=== PATIENT | female | born 1965 | race African-American/Black ===

== ENCOUNTER 2017-01-31 04:06 | Inpatient (IN) | payer MEDICAID, MEDICARE ==
[~2017-01-31] VITALS: Ht 168.9 cm; Wt 99.8 kg
[2017-01-31] MEDS ORDERED: KETOROLAC 30MG/ML VIAL IM ONE (05:00)
[2017-01-31 05:03] LABS: CLARITY URINE CLEAR (CLEAR); COLOR URINE YELLOW (YELLOW); GLUCOSE URINE NEGATIVE (NEGATIVE); KETONES URINE NEGATIVE (NEGATIVE); LEUKOCYTE ESTERASE URINE NEGATIVE (NEGATIVE); NITRITE URINE NEGATIVE (NEGATIVE); OCCULT BLOOD URINE NEGATIVE (NEGATIVE); PROTEIN URINE NEGATIVE (NEGATIVE); SPECIFIC GRAVITY URINE 1.017 (1.005-1.030)
[2017-01-31 05:18] LABS: BASOPHILS % 2.2 % (0.0-2.0); EOSINOPHILS % 1.9 % (0.0-5.0); HEMATOCRIT. 23.5 % (36.0-48.0); LYMPHOCYTES % 23.2 % (20.0-50.0); MEAN CORPUSCULAR HEMOGLOBIN 18.7 pg (28.0-32.0); MEAN CORPUSCULAR HGB CONC 29.1 g/dL (31.0-37.0); MEAN CORPUSCULAR VOLUME 64.2 fL (81.0-99.0); MEAN PLATELET VOLUME 8.3 fl (7.4-10.4); MONOCYTES % 8.6 % (2.0-8.0); NEUTROPHILS % 64.1 % (40.0-76.0); PLATELET 230 x1000/uL (130-400); RED BLOOD CELL COUNT 3.65 mill/uL (4.2-5.4); RED CELL DISTRIBUTION WIDTH 18.9 % (11.6-14.6); WHITE BLOOD COUNT 6.1 x1000/uL (4.5-11.0)
[2017-01-31 05:20] LABS: ADD RBC MORPHOLOGY YES; DIFFERENTIAL COMMENT 1; HEMOGLOBIN. 6.8 g/dL (12.0-16.0)
[2017-01-31 05:39] LABS: CHLORIDE 106 mEq/L (98-107); INDEX HEMOLYSI 1 (1-3); INDEX ICTERIC 1 (1-4); INDEX LIPEMIC 1 (1-3)
[2017-01-31 05:49] LABS: ANION GAP 11; CALCIUM 8.9 mg/dL (8.5-10.1); CARBON DIOXIDE 27 mEq/L (21-32); UREA NITROGEN BLOOD 15 mg/dL (7-21); eGFR > 60 mL/min (>60)
[2017-01-31 06:16] LABS: PLATELET ESTIMATE NORMAL
[2017-01-31 06:17] LABS: ANISOCYTOSIS 2+; HYPOCHROMASIA 1+
[2017-01-31] MEDS ORDERED: POTASSIUM CHLORIDE 20MEQ TABLET SR PO ONE (06:45)
[2017-01-31] MEDS ORDERED: SODIUM CHLORIDE 0.9% 1,000 ML IV ONE (07:00)
[2017-01-31] MEDS ORDERED: MORPHINE SULFATE 4 MG/ML CPJ (NOT FOR IM USE) IV ONE (07:00)
[2017-01-31] MEDS ORDERED: ONDANSETRON HCL 4MG/2ML VIAL IV ONE (07:00)
[2017-01-31 10:40] VITALS: BP 146/90
[2017-01-31] MEDS ORDERED: MAGNESIUM/ALUMINUM HYDROXIDE/SIMETHICONE 30ML UDC PO PRN (11:30)
[2017-01-31] MEDS ORDERED: LORAZEPAM 2MG/ML CPJ IV PRN (11:30)
[2017-01-31] MEDS ORDERED: NITROGLYCERIN 0.4MG TABLET SL SL PRN (11:30)
[2017-01-31] MEDS ORDERED: ACETAMINOPHEN 325MG TABLET PO PRN (11:30)
[2017-01-31] MEDS ORDERED: GUAIFENESIN 200MG/10ML SUGAR FREE UDC PO PRN (11:30)
[2017-01-31] MEDS ORDERED: IPRATROPIUM/ALBUTEROL 0.5-3(2.5)MG/3ML NEB INH PRN (11:30)
[2017-01-31] MEDS ORDERED: DIPHENHYDRAMINE 50MG/ML VIAL IV PRN (11:30)
[2017-01-31] MEDS ORDERED: NA PHOS,M-B/NA PHOS,DI-BA ENEMA 118ML PR PRN (11:30)
[2017-01-31] MEDS ORDERED: DOCUSATE SODIUM 100MG CAPSULE PO PRN (11:30)
[2017-01-31] MEDS ORDERED: ONDANSETRON HCL 4MG/2ML VIAL IV PRN (11:30)
[2017-01-31] MEDS ORDERED: GABA-290 PO (11:40)
[2017-01-31] MEDS ORDERED: BACL-141 PO (11:41)
[2017-01-31] MEDS ORDERED: CLON0.1T PO (11:44)
[2017-01-31] MEDS ORDERED: POTASSIUM CHLORIDE 20MEQ TABLET SR PO NR (11:45)
[2017-01-31] MEDS ORDERED: AMLO10TA80 PO (11:46)
[2017-01-31 12:00] VITALS: BP_SYST 138; BP_SYST 146; BP_DIAS 90; BP_DIAS 97
[2017-01-31 12:20] LABS: INDEX HEMOLYSI 1 (1-3); INDEX ICTERIC 1 (1-4); INDEX LIPEMIC 1 (1-3); IRON 32 ug/dL (50-175); TOTAL IRON BINDING CAPACITY 533 ug/dL (250-450)
[2017-01-31] MEDS: ENOXAPARIN 40MG/0.4ML SYR SUBCUT SCH (12:46)
[2017-01-31 12:54] LABS: FOLIC ACID (FOLATE) SERUM 5.9 ng/mL (>5.38)
[2017-01-31] MEDS: GABAPENTIN 300MG CAPSULE PO SCH ×2 (14:50→22:24)
[2017-01-31 16:00] VITALS: BP 152/100
[2017-01-31 16:07] LABS: *AMPHETAMINES SCREEN URINE NEGATIVE (NEGATIVE); *BARBITURATES SCREEN URINE NEGATIVE (NEGATIVE); *BENZODIAZEPINES SCREEN URINE NEGATIVE (NEGATIVE); *COCAINE SCREEN URINE PRESUMTIVE POSITIVE (NEGATIVE); CANNABINOID URINE SCREEN PRESUMTIVE POSITIVE (NEGATIVE); ECSTASY MDMA SCREEN URINE NEGATIVE (NEGATIVE); METHADONE URINE SCREEN NEGATIVE (NEGATIVE); OPIATES URINE SCREEN NEGATIVE (NEGATIVE); PHENCYCLIDINE URINE SCREEN NEGATIVE (NEGATIVE)
[2017-01-31] MEDS: FERROUS SULFATE 300MG/5ML UDC PO SCH (17:51)
[2017-01-31 20:00] VITALS: BP 150/103
[2017-01-31] MEDS ORDERED: ZOLPIDEM TARTRATE 5MG TABLET PO PRN (21:00)
[2017-01-31] MEDS: TRAMADOL 50MG TABLET PO PRN (22:24)
[2017-01-31] MEDS: ASCORBIC ACID 500 MG TABLET PO SCH (22:24)
[2017-01-31] MEDS: METOPROLOL TARTRATE 25MG TABLET PO SCH (22:24)
[2017-02-01] VITALS: BP 155/88
[2017-02-01 04:00] VITALS: BP 143/114
[2017-02-01] MEDS ORDERED: CLONIDINE 0.1MG TABLET PO PRN (05:30)
[2017-02-01] MEDS: TRAMADOL 50MG TABLET PO PRN ×3 (05:34→21:34)
[2017-02-01] MEDS: GABAPENTIN 300MG CAPSULE PO SCH ×3 (05:34→21:35)
[2017-02-01 06:19] LABS: ALANINE AMINOTRANSFERASE 52 IU/L (13-61); ALBUMIN 3.5 g/dL (3.4-5.0); ANION GAP 11; CALCIUM 8.7 mg/dL (8.5-10.1); CARBON DIOXIDE 24 mEq/L (21-32); CHLORIDE 106 mEq/L (98-107); INDEX HEMOLYSI 1 (1-3); INDEX ICTERIC 1 (1-4); INDEX LIPEMIC 1 (1-3); UREA NITROGEN BLOOD 6 mg/dL (7-21); eGFR > 60 mL/min (>60)
[2017-02-01 06:42] LABS: BASOPHILS % 1.1 % (0.0-2.0); HEMATOCRIT. 27.8 % (36.0-48.0); HEMOGLOBIN. 8.2 g/dL (12.0-16.0); LYMPHOCYTES % 25.9 % (20.0-50.0); MEAN CORPUSCULAR HEMOGLOBIN 19.6 pg (28.0-32.0); MEAN CORPUSCULAR HGB CONC 29.6 g/dL (31.0-37.0); MEAN CORPUSCULAR VOLUME 66.3 fL (81.0-99.0); MEAN PLATELET VOLUME 9.1 fl (7.4-10.4); MONOCYTES % 6.8 % (2.0-8.0); NEUTROPHILS % 64.2 % (40.0-76.0); PLATELET 273 x1000/uL (130-400); RED BLOOD CELL COUNT 4.19 mill/uL (4.2-5.4); RED CELL DISTRIBUTION WIDTH 21.1 % (11.6-14.6); WHITE BLOOD COUNT 6.3 x1000/uL (4.5-11.0)
[2017-02-01 08:00] VITALS: BP 114/85
[2017-02-01 08:02] LABS: DIFFERENTIAL COMMENT 1
[2017-02-01] MEDS: FERROUS SULFATE 300MG/5ML UDC PO SCH ×3 (08:25→18:02)
[2017-02-01] MEDS: PANTOPRAZOLE SODIUM 40 MG/VIAL IV SCH (08:25)
[2017-02-01] MEDS: ASCORBIC ACID 500 MG TABLET PO SCH ×2 (08:26→21:34)
[2017-02-01] MEDS: METOPROLOL TARTRATE 25MG TABLET PO SCH ×2 (08:26→21:35)
[2017-02-01] MEDS: ZINC SULFATE 220 MG ( 50 ) CAPSULE PO SCH (08:26)
[2017-02-01] MEDS: ENOXAPARIN 40MG/0.4ML SYR SUBCUT SCH (08:27)
[2017-02-01] MEDS: KETOROLAC 15MG/ML VIAL IV PRN ×2 (10:42→18:04)
[2017-02-01 12:00] VITALS: BP 104/74
[2017-02-01 16:00] VITALS: BP 113/75
[2017-02-01 20:00] VITALS: BP 140/80
[2017-02-02] VITALS: BP 146/97
[2017-02-02] MEDS: KETOROLAC 15MG/ML VIAL IV PRN (02:19)
[2017-02-02 04:00] VITALS: BP 132/89
[2017-02-02] MEDS: GABAPENTIN 300MG CAPSULE PO SCH (06:33)
[2017-02-02] MEDS: TRAMADOL 50MG TABLET PO PRN (06:34)
[2017-02-02 08:00] VITALS: BP 148/106
[2017-02-02] MEDS: ZINC SULFATE 220 MG ( 50 ) CAPSULE PO SCH (09:12)
[2017-02-02] MEDS: PANTOPRAZOLE SODIUM 40 MG/VIAL IV SCH (09:12)
[2017-02-02] MEDS: METOPROLOL TARTRATE 25MG TABLET PO SCH (09:12)
[2017-02-02] MEDS: FERROUS SULFATE 300MG/5ML UDC PO SCH (09:12)
[2017-02-02] MEDS: ENOXAPARIN 40MG/0.4ML SYR SUBCUT SCH (09:13)
[2017-02-02] MEDS: ASCORBIC ACID 500 MG TABLET PO SCH (09:13)
[2017-02-02 12:00] VITALS: BP 131/92
[2017-02-02 12:07] VITALS: BP 131/92
[2017-02-02] MEDS ORDERED: SENN-27 PO (12:26)
[2017-02-02] MEDS ORDERED: FERR-63 PO (12:26)
== END 2017-02-02 12:52 | disposition home or self-care (01) | DRG 760 ==
LOC: ER 04:08 → 6EST 08:36
PROVIDERS: ADMIT Internal Medicine; ATTEND Internal Medicine
PROC: 30233N1 Transfusion of Nonautologous Red Blood Cells into Peripheral Vein, Percutaneous Approach (ICD-10-PCS; principal; 2017-01-31)
DX: N92.0 Excessive and frequent menstruation with regular cycle (principal); G81.91 Hemiplegia, unspecified affecting right dominant side; D64.9 Anemia, unspecified; E66.9 Obesity, unspecified; E87.6 Hypokalemia; F19.10 Other psychoactive substance abuse, uncomplicated; I10 Essential (primary) hypertension; F17.210 Nicotine dependence, cigarettes, uncomplicated; N20.0 Calculus of kidney; K80.20 Calculus of gallbladder without cholecystitis without obstruction; Z68.35 Body mass index [BMI] 35.0-35.9, adult
CPT/HCPCS: 36415; 74176; 76770; 80048; 80053; 80305; 81003; 82607; 82746; 83036; 83540; 83550; 85025; 86850; 86900; 86920; 96361; 96372; 96374; 96375; 99285; C9113; J1650; J1885; J2270; J2405; J7030; P9016

== ENCOUNTER 2018-01-06 12:36 | Emergency (ER) | payer MEDICARE, MEDICAID ==
[~2018-01-06] VITALS: Ht 162.6 cm; Wt 90.0 kg
[~2018-01-06 12:36] MED LIST: AMLO10TA80 PO; BACL-141 PO; CLON0.1T PO; FERR-63 PO; GABA-290 PO; SENN-27 PO
[2018-01-06] MEDS ORDERED: AMLODIPINE 10MG TABLET PO ONE (14:15)
[2018-01-06] MEDS ORDERED: CLONIDINE 0.1MG TABLET PO ONE (14:15)
[2018-01-06 14:23] LABS: BASOPHILS % 0.8 % (0.0-2.0); EOSINOPHILS % 3.8 % (0.0-5.0); HEMOGLOBIN. 12.2 g/dL (12.0-16.0); LYMPHOCYTES % 36.6 % (20.0-50.0); MEAN PLATELET VOLUME 8.1 fl (7.4-10.4); MONOCYTES % 9.4 % (2.0-8.0); NEUTROPHILS % 49.4 % (40.0-76.0); PLATELET 287 x1000/uL (130-400); RED BLOOD CELL COUNT 4.21 mill/uL (4.2-5.4); RED CELL DISTRIBUTION WIDTH 15.9 % (11.6-14.6)
[2018-01-06 14:29] LABS: INR 0.9; PROTHROMBIN TIME 9.8 sec (9.4-11.6)
[2018-01-06] MEDS ORDERED: KETOROLAC 60MG/2ML VIAL IM ONE (14:30)
[2018-01-06 14:31] LABS: CHLORIDE 109 mEq/L (98-107)
[2018-01-06 14:37] LABS: TROPONIN I < 0.02 ng/mL (0.00-0.04)
[2018-01-06 16:00] VITALS: BP 181/88
== END 2018-01-06 16:45 | disposition home or self-care (01) ==
LOC: ER 13:00
DX: G89.29 Other chronic pain (principal); M54.5 Low back pain; M25.512 Pain in left shoulder; R20.2 Paresthesia of skin; I11.0 Hypertensive heart disease with heart failure; I50.9 Heart failure, unspecified; F17.200 Nicotine dependence, unspecified, uncomplicated; F14.10 Cocaine abuse, uncomplicated; F12.10 Cannabis abuse, uncomplicated; Z86.73 Personal history of transient ischemic attack (TIA), and cerebral infarction without residual deficits
CPT/HCPCS: 36415; 70450; 71045; 73030; 80053; 83880; 84484; 85025; 85610; 93005; 96372; 99285; J1885

== ENCOUNTER 2018-03-16 13:23 | Emergency (ER) | payer MEDICARE, MEDICAID ==
[~2018-03-16] VITALS: Ht 170.2 cm; Wt 100.0 kg
[2018-03-16] MEDS ORDERED: KETOROLAC 60MG/2ML VIAL IM ONE (15:00)
[2018-03-16 18:45] VITALS: BP 141/88
== END 2018-03-16 19:00 | disposition home or self-care (01) ==
LOC: ER 13:23
DX: S01.81XA Laceration without foreign body of other part of head, initial encounter (principal); S06.899A Other specified intracranial injury with loss of consciousness of unspecified duration, initial encounter; S05.12XA Contusion of eyeball and orbital tissues, left eye, initial encounter; S05.11XA Contusion of eyeball and orbital tissues, right eye, initial encounter; Y07.01 Husband, perpetrator of maltreatment and neglect; Y04.2XXA Assault by strike against or bumped into by another person, initial encounter; Y93.89 Activity, other specified; Y92.238 Other place in hospital as the place of occurrence of the external cause; I10 Essential (primary) hypertension; F14.10 Cocaine abuse, uncomplicated; F12.90 Cannabis use, unspecified, uncomplicated; F17.210 Nicotine dependence, cigarettes, uncomplicated; Z86.73 Personal history of transient ischemic attack (TIA), and cerebral infarction without residual deficits; Z79.899 Other long term (current) drug therapy; Z87.820 Personal history of traumatic brain injury
CPT/HCPCS: 70450; 70486; 71045; 93005; 96372; 99284; J1885

== ENCOUNTER 2022-04-26 10:25 | Emergency (ER) | payer MEDICARE, MEDICAID ==
[~2022-04-26] VITALS: Ht 167.6 cm; Wt 105.0 kg
[2022-04-26] MEDS ORDERED: KETOROLAC 60MG/2ML VIAL IM STA (12:34)
[2022-04-26] MEDS ORDERED: T3 PO (13:45)
[2022-04-26] MEDS ORDERED: CLIN-194 PO ×2 (13:45)
[2022-04-26] MEDS ORDERED: IBUP-2029 PO (13:45)
[2022-04-26] MEDS ORDERED: SULF1TAB48 PO ×2 (13:45)
[2022-04-26 14:31] VITALS: BP 127/85
[2022-04-30] MEDS ORDERED: CLIN-194 PO (16:40)
[2022-04-30] MEDS ORDERED: SULF1TAB48 PO (16:40)
== END 2022-04-26 14:32 | disposition home or self-care (01) ==
LOC: ER 10:25
DX: K04.7 Periapical abscess without sinus (principal); L03.211 Cellulitis of face; I10 Essential (primary) hypertension; Z86.73 Personal history of transient ischemic attack (TIA), and cerebral infarction without residual deficits
CPT/HCPCS: 96372; 99283; J1885

== ENCOUNTER 2023-09-28 14:45 | Emergency (ER) | payer MEDICARE, MEDICAID ==
[~2023-09-28] VITALS: Ht 170.2 cm; Wt 82.0 kg
[~2023-09-28 14:45] MED LIST changes: +CLIN-194 PO; +IBUP-2029 PO; +SULF1TAB48 PO; +T3 PO
[2023-09-28 15:01] VITALS: BP 103/62
[2023-09-28 18:02] LABS: BASOPHILS % 0.7 % (0.0-2.0); EOSINOPHILS % 0.1 % (0.0-5.0); HEMATOCRIT. 44.1 % (36.0-48.0); HEMOGLOBIN. 14.6 g/dL (12.0-16.0); LYMPHOCYTES % 35.3 % (20.0-50.0); MEAN CORPUSCULAR HEMOGLOBIN 30.8 pg (28.0-32.0); MEAN CORPUSCULAR HGB CONC 33.1 g/dL (31.0-37.0); MEAN PLATELET VOLUME 8.8 fl (7.4-10.4); MONOCYTES % 12.3 % (2.0-8.0); NEUTROPHILS % 51.6 % (40.0-76.0); PLATELET 210 x1000/uL (130-400); RED BLOOD CELL COUNT 4.74 mill/uL (4.2-5.4); RED CELL DISTRIBUTION WIDTH 13.7 % (11.6-14.6); WHITE BLOOD COUNT 2.5 x1000/uL (4.5-11.0)
[2023-09-28 18:22] LABS: ALANINE AMINOTRANSFERASE 42 IU/L (10-49); ALBUMIN 4.6 g/dL (3.2-4.8); ASPARTATE AMINOTRANSFERASE 77 IU/L (<34); BILIRUBIN TOTAL 0.3 mg/dL (0.1-1.0); CALCIUM 9.7 mg/dL (8.7-10.4); CARBON DIOXIDE 25 mEq/L (21-32); CHLORIDE 101 mEq/L (98-107); CREATININE 1.2 mg/dL (0.6-1.0); GLUCOSE 105 mg/dL (70-105); POTASSIUM 3.1 mEq/L (3.5-5.1); PROTEIN TOTAL 7.7 g/dL (6.0-8.3); SODIUM 137 mEq/L (136-145); TROPONIN I HIGH SENSITIVITY 8 ng/L (3.0-34); UREA NITROGEN BLOOD 15 mg/dL (9-23)
[2023-09-28] MEDS ORDERED: PREDNISONE 20MG TABLET PO ONE (21:30)
[2023-09-28] MEDS ORDERED: IPRATROPIUM/ALBUTEROL 0.5-3(2.5)MG/3ML NEB HHN ONE (21:30)
[2023-09-28] MEDS ORDERED: ACETAMINOPHEN 325MG TABLET PO ONE (21:30)
[2023-09-28 22:01] VITALS: TEMP 98.6
[2023-09-28 22:10] VITALS: PULSE 81; RESP 20; O2SAT 99
[2023-09-28 22:12] LABS: TROPONIN I HIGH SENSITIVITY 8 ng/L (3.0-34)
[2023-09-29] MEDS ORDERED: P50 MT (00:25)
[2023-09-29] MEDS ORDERED: AZIT250T12 MT (00:25)
[2023-09-29] MEDS ORDERED: TOPUD MT (00:25)
[2023-09-29] MEDS ORDERED: ALBU90AE INH (00:25)
== END 2023-09-29 00:36 | disposition home or self-care (01) ==
LOC: ER 15:14
DX: R05.9 Cough, unspecified (principal); R53.1 Weakness; R07.89 Other chest pain; I10 Essential (primary) hypertension; F14.10 Cocaine abuse, uncomplicated; F12.10 Cannabis abuse, uncomplicated; Z86.73 Personal history of transient ischemic attack (TIA), and cerebral infarction without residual deficits; Z87.19 Personal history of other diseases of the digestive system; Z79.899 Other long term (current) drug therapy; Z20.822 Contact with and (suspected) exposure to COVID-19
CPT/HCPCS: 99285; 71045; 87426; 80053; 81025; 85025; 84484; 36415; 94640; 93005; J7512; C9803